=== PATIENT | male | born 1975 | race Caucasian/White ===

== ENCOUNTER 2023-12-10 07:40 | Outpatient (CLI) | payer OTHER, SELFPAY | END 2023-12-10 07:41 | disposition home or self-care (01) | LOC: NFLDREF 12-11 07:28 | PROVIDERS: PCP Physician Assistant Medical; Referring Provider Physician Assistant Medical; Visit Provider Physician Assistant Medical | DX: Z13.29 Encounter for screening for other suspected endocrine disorder (principal); Z13.228 Encounter for screening for other metabolic disorders; Z13.220 Encounter for screening for lipoid disorders | CPT/HCPCS: 80053; 80061; 84439; 84443 ==

== ENCOUNTER 2024-01-22 06:23 | Outpatient (CLI) | payer OTHER, SELFPAY ==
--- NOTE | 2024-01-22 07:47 | W.ANESCHARGE ---
Anesthesia Charges Start Date/Time Anesthesia Start Date: 01/22/24 Anesthesia Start Time: 07:10 Stop Date/Time Anesthesia Stop Date: 01/22/24 Anesthesia Stop Time: 07:39
--- NOTE | 2024-01-22 08:17 | W.ANESCHARGE ---
Anesthesia Charges Start Date/Time Anesthesia Start Date: 01/22/24 Anesthesia Start Time: 07:10 Stop Date/Time Anesthesia Stop Date: 01/22/24 Anesthesia Stop Time: 07:39
== END 2024-01-22 06:24 | disposition home or self-care (01) ==
LOC: OP CLINIC 06:24
PROVIDERS: PCP Physician Assistant Medical; Visit Provider Internal Medicine
DX: Z12.11 Encounter for screening for malignant neoplasm of colon (principal); K63.5 Polyp of colon
CPT/HCPCS: 00811; 45380; 88305; J2704